=== PATIENT | female | born 1970 | race Caucasian/White ===

== ENCOUNTER 2018-01-02 13:52 | Day surgery (SDC) | payer OTHER ==
[~2018-01-02] VITALS: Ht 157.5 cm; Wt 64.9 kg
--- NOTE | 2018-01-02 07:52 | PD.OP ---
Operative Report Date of Surgery: Jan 02, 2018 Preoperative Diagnosis: (1) Postmenopausal bleeding (2) Abnormal findings on diagnostic imaging of other specified body structures (3) Generalized anxiety disorder (4) Pelvic and perineal pain Postoperative Diagnosis: (1) Postmenopausal bleeding (2) Abnormal findings on diagnostic imaging of other specified body structures (3) Generalized anxiety disorder (4) Pelvic and perineal pain (5) Fibroids, submucosal Procedure: 1. hysteroscopy 2. myomectomy 3. polypectomy 4. D&C Anesthesia: ORTEGA Surgeon: Jaz Morris Can Repairer(s): OR Staff Operation and Findings: IVF: 500 ml LR + IV antibiotics given prior to surgery EBL: < 10 ml UO: none Findings: 1. endometrial fibroid 2. endometrial polyp Specimens: endometrial fibroid, endometrial polyp, endometrial curettings Complications: none Condition: stable Disposition: PACU Description of the procedure: The risks, benefits and alternatives of the procedure were discussed with the patient. Her questions were answered. The patient signed informed consent and wished to proceed. She was taken to the operating room with her IV running. She was placed in the supine position and was given general anesthesia without difficulties or complications. IV antibiotics were given. The patient was placed in the dorsal lithotomy position and was prepped and draped in the usual sterile fashion. A bivalve speculum was introduced inside the patient's vagina. The anterior aspect of the cervix was grasped with a single tooth tenaculum for manipulation. The cervix was carefully dilated. A 5 mm Myosure hysteroscope was introduced inside the patient's uterus. The cavity was noted to be very vascular. A fibroid and a polyp were noted in the uterus ( in the lower segment and close to the fundus). The fibroid was removed with Myosure instrument. The polyp was also removed with Myosure instrument. In addition, multiple biopsies were done with Myosure instrument. Next, a careful curettage was done with a sharp curet. The tissues were sent to pathology. All the instruments were removed from the patient's uterus. Pressure was placed at the tenaculum site for hemostasis. All the instruments were removed from the patient's vagina. She tolerated the procedure well; she was successfully awaken from general anesthesia and was transferred to PACU in stable condition. Note: I discussed the surgical findings and surgical procedures with patient's boyfriend. His questions were answered. He verbalized understanding and agreement to the procedures done. Jaz Morris MD Jan 02, 2018 07:52
[~2018-01-02 13:52] MED LIST: DEXAMETHASONE SOD PHOS 4 MG/ML VIAL IV ONE; LIDOCAINE HCL 1% PF 5 ML SYRINGE OTHER ONE; LORA0.5T PO; METR0.7537 TOPICAL; MINO50CA PO; ONDANSETRON HCL 4 MG/2 ML VIAL IV ONE; PROPOFOL 200 MG/20 ML AMP IV ONE
[2018-01-02] MEDS ORDERED: SODIUM CHLORIDE 0.9% INJ 100 ML ONE (14:37)
[2018-01-02] MEDS ORDERED: ceFAZolin INJ 1,000 MG VIAL ONE (14:37)
[2018-01-02] MEDS ORDERED: CHLORHEXIDINE GLUCONATE 2 % 1 PACK (2 CLOTHS) TOPICAL PRN (14:45)
[2018-01-02] MEDS ORDERED: LACTATED RINGER'S 1000 ML IV PRN (14:45)
[2018-01-02] MEDS ORDERED: METOPROLOL TARTRATE 25 MG TAB PO PRN (14:45)
[2018-01-02] MEDS ORDERED: POVIDONE IODINE 5% (ANTISEPSIS KIT) 4 APPLICATIONS EACH NARE PRN (14:45)
[2018-01-02] MEDS ORDERED: CEFAZOLIN INJ 1,000 MG in SODIUM CHLORIDE 0.9% INJ 100 ML IV SCH (14:45)
[2018-01-02] MEDS ORDERED: SODIUM CHLORID 0.9% 500 ML IV PRN (14:45)
[2018-01-02] MEDS ORDERED: MIDAZOLAM HCL 2 MG/2 ML VIAL ONE (15:58)
[2018-01-02] MEDS ORDERED: DO NOT ADM ANY ANTICOAGULANT DRUGS PRN (16:00)
[2018-01-02] MEDS ORDERED: ACETAMINOPHEN 1000 MG/100 ML 100 ML IV ONE ×2 (16:00→16:30)
[2018-01-02] MEDS ORDERED: *morphine SULFATE 4 MG/ML PERIprocedure ONLY ONE ×2 (16:00→16:17)
[2018-01-02] MEDS ORDERED: oxyCODONE/ACETAMINOPHEN 5 MG/325 MG TAB PO PRN (16:30)
[2018-01-02] MEDS ORDERED: ONDANSETRON HCL 4 MG/2 ML VIAL ONE (16:45)
[2018-01-02] MEDS ORDERED: GLYCOPYRROLATE 0.2 MG/ML VIAL ONE (18:05)
[2018-01-02 18:45] VITALS: BP 157/86; PULSE 74; RESP 17; TEMP 97.8; O2SAT 94
[2018-01-02] MEDS ORDERED: GLYCOPYRROLATE 0.2 MG/ML VIAL IV ONE (19:00)
== END 2018-01-02 18:57 | disposition home or self-care (01) ==
LOC: HSDC 13:52
PROVIDERS: ATTEND Obstetrics & Gynecology
DX: N95.0 Postmenopausal bleeding (principal); R93.8 Abnormal findings on diagnostic imaging of other specified body structures; D25.0 Submucous leiomyoma of uterus; F41.1 Generalized anxiety disorder
CPT/HCPCS: 00952; 58558; 88305; J0131; J0690; J1100; J2250; J2270; J2405; J3010; J7120